=== PATIENT | male | born 1995 | race African-American/Black ===

== ENCOUNTER 2022-04-27 20:05 | Emergency (ER) | payer MEDICAID, OTHER ==
[~2022-04-27] VITALS: Ht 175.3 cm; Wt 113.0 kg
[~2022-04-27 20:05] MED LIST: UNKNOWN BP MED
[2022-04-28 04:17] VITALS: BP 176/108
[2022-04-28] MEDS ORDERED: NAPR-681 PO (04:19)
[2022-04-28] MEDS ORDERED: SULF1TAB48 MT (04:19)
[2022-04-28] MEDS ORDERED: CEPH500T MT (04:19)
[2022-04-28] MEDS ORDERED: CLOT15CR27 TP (04:19)
== END 2022-04-28 04:45 | disposition home or self-care (01) ==
LOC: ER 20:05
DX: L03.316 Cellulitis of umbilicus (principal); I10 Essential (primary) hypertension
CPT/HCPCS: 99283

== ENCOUNTER 2024-09-12 22:13 | Emergency (ER) | payer MEDICAID, OTHER ==
[~2024-09-12] VITALS: Ht 175.3 cm; Wt 121.6 kg
[~2024-09-12 22:13] MED LIST changes: +CEPH500T MT; +CLOT15CR27 TP; +NAPR-681 PO; +SULF1TAB48 MT
[2024-09-12 22:30] VITALS: O2SAT 99
[2024-09-13] MEDS ORDERED: SULF1TAB48 MT (00:08)
[2024-09-13 00:47] VITALS: BP 201/117; PULSE 95; RESP 20; TEMP 36.8; O2SAT 99
== END 2024-09-13 00:49 | disposition home or self-care (01) ==
LOC: ER 22:13
DX: L02.411 Cutaneous abscess of right axilla (principal); I10 Essential (primary) hypertension; Z79.899 Other long term (current) drug therapy
CPT/HCPCS: 99283